=== PATIENT | male | born 1960 | race Caucasian/White ===

== ENCOUNTER 2020-06-17 09:28 | Outpatient (CLI) | payer OTHER, SELFPAY ==
--- NOTE | ~2020-06-17 | US_ITS ---
EXAMINATION: US right upper quadrant EXAM DATE: 06/17/2020 09:59 INDICATION: R74.8 - Abnormal levels of other serum enzymes. TECHNIQUE: Multiple grayscale and Doppler images of the abdomen right upper quadrant were obtained (b y a technologist who performed the scan) and subsequently reviewed. No prior study for comparison. Co rrelation was made with CT abdomen pelvis 07/23/2015. FINDINGS: The pancreatic head and body are normal in appearance. The pancreatic tail is not visualized. The l iver has normal echogenicity and contour. There is possible isoechoic liver mass measuring 3.5 x 2.4 x 3.5 cm. There are several liver cysts measuring 2.0 and 1.4 cm. There is no evidence of intrahepa tic biliary duct dilation. Portal venous flow was seen in the hepatopedal, normal direction and has normal Doppler waveform. No right-sided hydronephrosis. Common bile duct measures 3 mm, which is normal. The gallbladder wall is normal in thickness, with ex pected amount of distention. No sonographic evidence of pericholecystic fluid. There is no cholelit hiases. Technologist performing exam reports patient did not demonstrate sonographic Whitten's sign. Please note that this sign is less reliable in patients who have received pain medication. IMPRESSION: Probable indeterminate 3.5 cm liver mass. Recommend liver MRI examination for further e valuation. Reviewed, dictated and finalized at location A. CTOR INDEPENDENT IMPRESSION: Probable indeterminate 3.5 cm liver mass. Recommend liver MRI exa mination for further evaluation.
== END 2020-06-17 09:29 | disposition home or self-care (01) ==
PROVIDERS: PCP Family Medicine; Visit Provider Family Medicine
DX: R74.8 Abnormal levels of other serum enzymes (principal)
CPT/HCPCS: 76705

== ENCOUNTER 2020-06-23 13:48 | Outpatient (CLI) | payer OTHER, SELFPAY ==
--- NOTE | ~2020-06-23 | MR_ITS ---
EXAMINATION: MR abdomen wo/w con DATE: 06/23/2020 15:14 INDICATION: Liver mass. Abnormal levels of other serum enzymes. TECHNIQUE: Magnetic resonance imaging (MRI) of the abdomen was performed without and with 18 mL Multi Franc intravenous contrast. Sequences included coronal T2-weighted FS FSE, coronal and axial FS FIEST A, axial T2-weighted FSE, coronal LAVA-flex, axial STIR FSE, axial DWI, axial dual-echo T1-weighted F SPGR, and axial LAVA. Postcontrast sequences included coronal LAVA-flex and a time course of axial LA VA. COMPARISON: CT abdomen and pelvis 07/23/2015, abdomen ultrasound 06/17/2020 FINDINGS: There are cysts in the liver measuring up to 1.8 cm. In the left hepatic lobe, there is a 3.5 cm mass with interrupted peripheral puddling of contrast, consistent with a hemangioma. The gallbladder, spl een, pancreas, adrenal glands, and left kidney are normal. There are peripelvic cysts in left kidney measuring up to 2.5 cm. There are no dilated loops of bowel. There are no pathologically enlarged lym ph nodes. There is no free intraperitoneal fluid. IMPRESSION: 1. 3.5 cm liver hemangioma correlating with the ultrasound abnormality. Reviewed, dictated and finalized at location A. INE LOAD CLERK
== END 2020-06-23 13:49 | disposition home or self-care (01) ==
PROVIDERS: PCP Family Medicine; Visit Provider Family Medicine
DX: R74.8 Abnormal levels of other serum enzymes (principal); R16.0 Hepatomegaly, not elsewhere classified; D18.09 Hemangioma of other sites
CPT/HCPCS: 74183; A9577

== ENCOUNTER → 2022-10-26 07:32 | Outpatient (CLI) | payer OTHER, SELFPAY ==
--- NOTE | ~2022-10-26 | US_ITS ---
Limited Abdominal Sonogram: Real-time sonographic imaging of the right upper quadrant was performed. Clinical History: Abnormal serum enzymes Findings: The liver appears normal in overall echotexture. No intrahepatic biliary dilatation. Sugge stion of 2.6 x 3.0 x 3.2 cm hypoechoic, solid left hepatic lobe mass. There is a small septated cyst in the liver measuring 1.1 cm in diameter. There is an additional simple cyst in the right hepatic lo be measuring 2.3 cm in diameter. Main portal vein demonstrates normal direction of flow. The gallblad epifanio is well distended, and appears normal with no evidence of gallstone or wall thickening. The commo n bile duct measures 5 mm. The visualized pancreas, aorta, and IVC are unremarkable. Impression: 3.2 x 3.0 x 2.6 hypoechoic, solid left hepatic lobe mass. This is indeterminate. Pre and postcontrast MR or triple phase CT recommended to further evaluate. Malignancy/neoplasm is not excluded. Additional small hepatic cysts, as noted above. Reviewed, dictated and finalized at location M. Impression: 3.2 x 3.0 x 2.6 hypoechoic, solid left hepatic lobe mass. This is indeterminate . Pre and postcontrast MR or triple phase CT recommended to further evaluate. M alignancy/neoplasm is not excluded. Additional small hepatic cysts, as noted above.
== END ==
PROVIDERS: PCP Family Medicine; Visit Provider Family Medicine
DX: R74.8 Abnormal levels of other serum enzymes (principal); K76.89 Other specified diseases of liver
CPT/HCPCS: 76705

== ENCOUNTER → 2022-11-03 12:48 | Outpatient (CLI) | payer OTHER, SELFPAY ==
--- NOTE | ~2022-11-03 | CT_ITS ---
EXAMINATION: CT abdomen pelvis wo/w con DATE: 11/03/2022 13:24 INDICATION: Liver mass, elevated liver enzymes TECHNIQUE: Computed tomography (CT) of the abdomen was performed without intravenous contrast. CT of the abdomen and pelvis was then performed with a total of 100 mL Omnipaque 350 intravenous contrast i n two postcontrast phases. The dose-length product (DLP) was 2341.10 mGy-cm. Automated exposure contr ol and iterative reconstruction technique were employed. COMPARISON: Ultrasound, 10/26/2022; MRI, 06/23/2020 FINDINGS: Minimal dependent atelectasis is present in the lung bases. The heart size is normal. There is a 4.2 cm hemangioma of the left hepatic lobe corresponding to the sonographic mass in question. C ysts of the liver measure up to 2.3 cm. No suspicious liver mass is identified. The spleen, pancreas, gallbladder, and adrenal glands are normal. There are multiple peripelvic cysts in the left kidney. The right kidney is unremarkable. No pathologically enlarged abdominal or pelvic lymph nodes are iden tified. No free intraperitoneal gas or evidence of bowel obstruction. The appendix is normal. A moder ate volume of colonic stool is present. There is moderate lumbar spondylosis with interval worsening. IMPRESSION: 1. Hemangioma of the left hepatic lobe corresponding to the left hepatic lobe mass described on ultra sound. No suspicious liver mass identified. Reviewed, dictated and finalized at location F. IMPRESSION: 1. Hemangioma of the left hepatic lobe corresponding to the left hepatic lobe m ass described on ultrasound. No suspicious liver mass identified.
[2022-11-03 13:12] LABS: Estimated Glomerular Filt Rate > 60
== END ==
PROVIDERS: PCP Family Medicine; Visit Provider Family Medicine
DX: K76.9 Liver disease, unspecified (principal); R74.8 Abnormal levels of other serum enzymes
CPT/HCPCS: 74178; Q9967

== ENCOUNTER 2024-08-29 08:35 | Outpatient (CLI) | payer OTHER, SELFPAY ==
--- NOTE | ~2024-08-29 | XR_ITS ---
Left Knee Technique: AP, lateral, and sunrise views were obtained. Clinical History: Pain Findings: No fracture or dislocation is seen. Osseous alignment is anatomic. There is moderate degene rative change of the medial compartment. There is mild degenerative change of the lateral and patello femoral compartments. Soft tissues are unremarkable. No joint effusion is seen. Impression: Degenerative changes, as above. Reviewed, dictated and finalized at location M. Impression: Degenerative changes, as above.
--- NOTE | ~2024-08-29 | XR_ITS ---
Right Knee Technique: AP, lateral, and sunrise views were obtained. Clinical History: Pain Findings: No fracture or dislocation is seen. Osseous alignment is anatomic. There is medial compartm ent narrowing, with minimal tricompartmental spurring. Soft tissues are unremarkable. No joint effusi on is seen. Impression: Degenerative change, as above. Reviewed, dictated and finalized at location M. Impression: Degenerative change, as above.
== END 2024-08-29 08:36 | disposition home or self-care (01) ==
DX: M17.0 Bilateral primary osteoarthritis of knee (principal)
CPT/HCPCS: 73564